=== PATIENT | female | born 1975 | race Caucasian/White ===

== ENCOUNTER 2023-10-31 13:59 | Emergency (ER) | payer BC, SELFPAY ==
[2023-10-31 14:08] VITALS: BP 150/106
[2023-10-31 15:34] VITALS: BMI 28.5
[2023-10-31 15:36] VITALS: BP 138/90
--- NOTE | 2023-10-31 15:42 | ED.GENMED ---
History of Present Illness
General
Chief Complaint: Abdominal Symptoms
Source: patient
Time Seen by Provider: 10/31/23 15:21
Travel History
Have you had any contact with someone who has COVID-19?: No
Do you have any symptoms of coronavirus? Fever > 100 degrees, chills, cough, shortness of breath, sore throat, loss of taste or smell, muscle aches, or headache?: No
History of Present Illness
History of Present Illness:
48 year old female with PMH of HTN, breast cancer, previous UTI presenting to the ED due to 48 hours of N/V/D with difficulty tolerating PO during this time. Patient states that about 2 weeks ago she started with a URI and went to a local urgent
care where she was started on a medrol dosepak that led to good relief of symptoms, however when patient finished the steroid taper she notes the cough returned. Patient called her PCP who prescribed a prednisone taper for which patient has taken a
few days worth which is when the symptoms started. Patient is also using an albuterol inhaler and Tessalon Perles but still states continue to cough. Patient states she feels that she is dehydrated which is why family insisted she come to the
emergency department today. She states she is no longer feeling nauseous but still continues to have a very harsh nonproductive cough. Patient notes that she gets chest discomfort when coughing only. She otherwise denies any fevers, chills,
rigors, known sick contacts, recent travel, currently not on any antibiotics. Social history was noncontributory.
Past History
Past History
ED Past Medical History: Cancer, Psychiatric ( depression), Other (in vitro fertilization), Other (mastodynia) and Other (chronic cough, antibiotic treatment for presumed Lyme's disease, MRSA exposure)
ED Past Surgical History: Gynecological (hysterectomy) and Other (Bilateral mastectomy)
Social History
Tobacco: Non-smoker
Alcohol: Occasional
Drug: None
Personal:
Living: with family
Employment: Employed
Family History
Family History: CAD (in father)
Review of Systems
Review of Systems
All Other Systems: ROS reviewed and negative except as documented in HPI and ROS
Phy Exam
Physical Exam
Physical Exam:
GENERAL: Alert , in no apparent distress, harsh cough that almost seems somewhat exaggerated and almost induces emesis during the exam
EYE: conjunctiva clear
NECK: Supple
ENT: o/p clr, mmm.
CARDIAC: Regular rate and rhythm, no murmur
LUNGS: Clear breath sounds bilaterally, no acute respiratory distress, no wheezes/rales/rhonchi
Abdomen: Soft, nontender, nondistended
NEUROLOGICAL: Alert and oriented
SKIN: Warm and dry, skin intact.
MUSCULOSKELETAL: well perfused. No edema
PSYCH: Normal and appropriate interaction.
Scores
Heart Failure Risk
Heart Failure Risk Score: Not Applicable
Heart Score for Chest Pain Patients
STEMI patient?: Not applicable
Withdrawal Assessment of Alcohol
Withdrawal Assessment Completed?: Not applicable
Course
Orders/Labs/Results
Orders:
Orders
10/31/23 14:13
Electrocardiogram (*1) Urgent
Reason for Study: Abdominal Pain
EKG- Treatment ONCE
10/31/23 15:39
Test Result ONCE
10/31/23 15:40
Complete Blood Count/With Diff Urgent
Comprehensive Metabolic Panel Urgent
HCG, Serum Qualitative Screen Urgent
Lipase Urgent
10/31/23 15:50
D-Dimer Urgent
10/31/23 16:16
CR Chest - 2 Views Urgent
Comment:
Reason For Exam: cough
10/31/23 17:13
0.9% Sodium Chloride 500 ml [Nss] 500 ml IV BOLUS
Abnormal Lab Results
10/31/23
15:40
Abs Immat Gran (auto) 0.1 H 10^3/uL
(0-0.05)
Absolute Monos (auto) 1.1 H 10^3/uL
(0.1-0.6)
Immature Gran % 0.7 H %
(0-0.5)
Lymphocytes % 13.6 L %
(20.5-51.1)
Monocytes % 11.9 H %
(1.7-9.3)
Glucose 103 H mg/dl
(70-99)
10/31/23 15:40
10/31/23 15:40
Vital Signs
Initial and Last Documented VS:
Initial Vital Signs
Temp Pulse Resp BP Pulse Ox
99.4 F 77 20 150/106 99
10/31/23 14:08 10/31/23 14:08 10/31/23 14:08 10/31/23 14:08 10/31/23 14:08
Last Documented Vital Signs
Temp Pulse Resp BP Pulse Ox
99.4 F 77 20 141/84 100
10/31/23 14:08 10/31/23 14:08 10/31/23 14:08 10/31/23 16:00 10/31/23 16:30
MDM/Problems Addressed
Differential Diagnosis Includes:
URI, pneumonia, medication side effect, gastroenteritis, gastritis, electrolyte disturbance
MDM/Problems Addressed:
48-year-old female presenting the emergency department for evaluation of 2 days of nausea vomiting diarrhea, patient noting the nausea vomiting diarrhea seems to have subsided however she is still having a very harsh dry hacking cough. The cough
does seem somewhat exaggerated during my exam and this almost induces emesis while examining. Patient's lungs are clear to auscultation. I do suspect it could possibly be a medication interaction that led to the nausea and vomiting due to the
lgdw-hb-oexn steroids and this may have caused a little gastritis/GI upset. Patient has not had a chest x-ray but given her history of breast cancer this could be a risk factor for PE and given the harsh nature of the cough and chest discomfort
will obtain a D-dimer. Will order 1 L of IV fluids. Reassessment following
Chronic conditions affecting care: Cancer
*Pulse Oximetry
Patient hypoxic: no
*EKG
Interpreted by ED Provider?: Yes
Comparison EKG: no changes
Heart Rate: 60
Rate: normal
Rhythm: sinus
[place]: normal axis
Ischemia: no ischemia
*Critical Care Note
Total Time (30-74mins, 75-104mins- exclusive of procedures): Not Applicable
Patient Management
Escalation/DeEscalation of care consider admission/obs:
Patient's labs are reassuring. D-dimer is negative. BUN and creatinine are within normal limits. Patient completed normal saline and was able to tolerate p.o. while here. Brat diet advised. Aware of return precautions but otherwise stable for
discharge home.
ED Attending Note
-
Portions of this chart may have been created with voice recognition software.� Occasional wrong word or��sound alike� substitutions may have occurred due to the inherent limitations of voice recognition software.
Discharge Plan
Departure
Patient Disposition: Home (Routine Discharge)
Date of Disposition: 10/31/23
Time of Disposition: 17:02
Patient with high blood pressure during this ER visit?: Yes
Discharge Problem:
URI (upper respiratory infection), Nausea and vomiting
Instructions: Cough, Adult (DC)
Prescriptions:
New
ondansetron 4 mg Tablet,Disintegrating
4 mg PO TIDPRN PRN (Reason: nausea/vomiting) Qty: 8 0RF
No Action
multivitamin [One Daily Multivitamin] 1 EACH tablet
1 ea PO DAILY
lorazepam 1 MG tablet
1 mg PO HSPRN PRN (Reason: sleep)
vitamin B complex [Neurodep] 1 CAP capsule
1 cap PO DAILY
eszopiclone [Lunesta] 3 MG tablet
3 mg PO HS
cholecalciferol (vitamin D3) 2,000 UNIT tablet
5,000 unit PO DAILY
omega 1-abw-xse-fish oil [Fish Oil] 1 EACH capsule
1 cap PO DAILY
L.acidoph, paracasei,B. lactis 1 EACH capsule
1 ea PO DAILY
cyclobenzaprine 10 mg Tablet
10 mg PO PRN PRN (Reason: stomach muscle spasms)
Rx Instructions:
takes with gabapentin
ascorbic acid (vitamin C) [Vitamin C] 1,000 mg Tablet
1 g PO DAILY
atenolol 100 mg Tablet
100 mg PO DAILY
amlodipine 2.5 mg Tablet
2.5 mg PO DAILY
vitamin E 400 unit Tablet
45 mg PO DAILY
gabapentin 300 mg Capsule
300 mg PO PRN PRN (Reason: stomach muscle spasms)
Rx Instructions:
takes with cyclobenzaprine
venlafaxine 75 mg Capsule,Extended Release 24hr
75 mg PO DAILY
acetaminophen 325 mg Tablet
650 mg PO Q4HPRN PRN (Reason: mild pain) Qty: 0 0RF
ibuprofen 600 mg tablet
600 mg PO Q6H PRN (Reason: pain) Qty: 30 0RF
Referrals:
Fredrick Borja MD [Family Provider] -
Interventions
Interventions:
*Risk Screen - Suicide Last Done: 10/31/23 15:35
*General Assessment Last Done: 10/31/23 15:35
*Neglect/Abuse Screening Last Done: 10/31/23 15:35
ED- Fall Risk Assessment Last Done: 10/31/23 15:35
*ED COVID-19 Vaccine History Last Done: 10/31/23 15:35
*Nursing Disposition Last Done: 10/31/23 18:08
[facility]-Ajzhjw-Bfpwgrbyae Assessment Last Done: 10/31/23 15:35
Discharge Date and Time
Discharge Date/Time: 10/31/23 18:09
[2023-10-31 16:00] VITALS: BP 141/84
[2023-10-31 16:01] LABS: % Basophils 0.5 % (0-2); % Eosinophils 5.1 % (0-6); % Immature Granulocytes 0.7 % (0-0.5); % Lymphocytes 13.6 % (20.5-51.1); % Monocytes 11.9 % (1.7-9.3); % Neutrophils 68.2 % (42.2-75.2); Absolute Basophils 0.1 10^3/uL (0-0.2); Absolute Eosinophils 0.5 10^3/uL (0-0.7); Absolute Immature Granulocytes 0.1 10^3/uL (0-0.05); Absolute Lymphocytes 1.3 10^3/uL (1.2-3.4); Absolute Monocytes 1.1 10^3/uL (0.1-0.6); Absolute Neutrophils 6.4 10^3/uL (1.4-6.5); Hematocrit 41.8 % (37.0-47.0); Hemoglobin 14.2 g/dL (12.0-16.0); Mean Corpuscular Hgb 30.5 pg (27.0-31.0); Mean Corpuscular Volume 89.9 fL (81.0-99.0); Mean Platelet Volume 9.2 fL (7.4-10.4); Nucleated Red Blood Cells % 0 %; Platelet Count 312 10^3/uL (130-400); Red Blood Cell Count 4.65 10^6/uL (4.20-5.40); Red Cell Dist. Width 12.5 % (11.5-14.5); White Blood Cell Count 9.4 10^3/uL (4.8-10.8)
[2023-10-31 16:12] LABS: ALT (SGPT) 27 U/L (0-35); AST (SGOT) 21 U/L (14-36); Albumin 4.2 g/dl (3.5-5.0); Alkaline Phosphatase 92 U/L (38-126); Blood Urea Nitrogen 15 mg/dl (7-17); Calcium 9.4 mg/dl (8.4-10.2); Carbon Dioxide 30 mmol/L (22-30); Chloride 104 mmol/L (98-107); Estimated Creatinine Clearance 82 ml/min; Glucose 103 mg/dl (70-99); Lipase 93 U/L (23-300); Potassium 3.8 mmol/L (3.5-5.1); Sodium 136 mmol/L (135-145); Total Bilirubin 1.2 mg/dl (0.2-1.3); Total Protein 6.6 g/dl (6.3-8.2); eGFR > 60.00
[2023-10-31 16:12] LABS: D-Dimer 0.38 ug/mlFEU (0.00-0.50)
[2023-10-31 16:14] LABS: HCG, Serum Qualitative Screen Negative
[2023-10-31] MEDS: NSS 500 IV (17:20)
== END 2023-10-31 18:09 | disposition home or self-care (01) ==
LOC: EMR 13:59
PROVIDERS: Physician Assistant Medical; EMERGENCY PHYSICIAN Student in an Organized Health Care Education/Training Program; FAMILY PHYSICIAN Family Medicine
DX: J06.9 Acute upper respiratory infection, unspecified (principal); R11.2 Nausea with vomiting, unspecified; I10 Essential (primary) hypertension; R07.89 Other chest pain; Z82.49 Family history of ischemic heart disease and other diseases of the circulatory system; Z85.3 Personal history of malignant neoplasm of breast; Z87.440 Personal history of urinary (tract) infections; Z90.710 Acquired absence of both cervix and uterus
CPT/HCPCS: 99283; 71046; 80053; 83690; 84703; 85025; 85379; 93005